=== PATIENT | female | born 1955 | race Caucasian/White ===

== ENCOUNTER 2016-08-29 09:34 | Emergency (ER) | payer OTHER ==
[2016-08-29 09:40] VITALS: BP 111/70; PULSE 77; TEMP 98.4; BMI 21.5
--- NOTE | 2016-08-29 10:32 | PDOC ---
History of Present Illness - General Chief Complaint: Laceration Stated Complaint: LEFT 4 FINGER LACERATION Time Seen by Provider: 08/29/16 09:35 - History of Present Illness Initial Comments: 08/29/16 10:44 Chief complaint: Finger injury History of present illness: Patient cut her left fourth finger while chopping salad at work. There is bleeding. She denies distal numbness tingling or limited range of motion. 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 Review of systems: As noted above, denies distal numbness tingling weakness or limited motion. Denies pain at present Past medical history: Healthy female, no current medical problems, no medications. Specifically, denies diabetes Social/family history reviewed and noncontributory Physical exam: Alert oriented well-developed well-nourished no acute distress cheerful and cooperative Afebrile, vital signs normal Left fourth finger: There is a flap-type laceration over the dorsal aspect of the middle phalanx. There is a small amount of bleeding. There is synovial thickening and a flexion deformity of the DIP joint, but no sign of active inflammation. She is unable to fully extend the DIP joint, but states that this is unchanged. There is no sensory deficit to the distal phalanx and capillary refill is intact Impression: Laceration of the finger, no new tendon or nerve involvement on examination Plan: Anesthetize, explored, and repair. Tetanus is up-to-date Past History - Past Medical History Allergies/Adverse Reactions: Allergies Allergy/AdvReac Type Severity Reaction Status Date / Time No Known Allergies Allergy Verified 08/29/16 09:35 Home Medications: Ambulatory Orders No Home Medications 0 dose .ROUTE UTDICT 01/18/12 Other medical history: PT DENIES - Surgical History Appendectomy: Yes - Immunization History Immunization Up to Date: Yes - Psycho/Social/Smoking Cessation Hx Anxiety: No Suicidal Ideation: No Smoking Status: No Smoking History: Never smoked Number of Cigarettes Smoked Daily: 0 Information on smoking cessation initiated: No Hx Alcohol Use: Yes (WINE OCCASIONAL) Drug/Substance Use Hx: No Substance Use Type: None *Physical Exam - Vital Signs Last Vital Signs Temp Pulse Resp BP Pulse Ox 98.4 F 77 18 111/70 98 08/29/16 09:35 08/29/16 09:35 08/29/16 09:35 08/29/16 09:35 08/29/16 09:35 Medical Decision Making - Medical Decision Making 08/29/16 10:48 Procedure note: Repair of laceration Digital block was performed with 1% Xylocaine plain, with good resultant anesthesia The flap was elevated and the laceration explored. It was superficial, confined to the skin and subcutaneous tissue, with intact extensor tendon visualized Wound was thoroughly scrubbed and irrigated with normal saline Hemostasis was obtained with pressure, and the wound edges were approximated with 5-0 nylon suture, loosely so as not to compromise the flap. The wound was dressed with bacitracin, 2 x 2, and tube gauze Wound instructions were given Recheck immediately if sign of infection, otherwise return 7-10 days for suture removal. Patient discharged fully ambulatory and in no pain or other distress to follow- up as directed *DC/Admit/Observation/Transfer Diagnosis at time of Disposition: Laceration of finger Qualifiers: Encounter type: initial encounter Qualified Code(s): S61.219A - Laceration without foreign body of unspecified finger without damage to nail, initial encounter - Discharge Dispostion Disposition: HOME Condition at time of disposition: Improved Admit: No - Referrals Referrals: Scott Castellanos MD [Staff Physician] - - Patient Instructions Printed Discharge Instructions: DI for Laceration Repair Additional Instructions: Keep absolutely clean and dry. Rest and elevate tonight. Recheck immediately if sign of infection Sutures out in 7-10 days. - Post Discharge Activity Work/School Note: Back to Work
== END 2016-08-29 10:54 | disposition home or self-care (01) ==
LOC: FER 09:34
PROC: 0HQGXZZ Repair Left Hand Skin, External Approach (ICD-10-PCS; principal; 2016-08-29)
DX: S61.215A Laceration without foreign body of left ring finger without damage to nail, initial encounter (principal); W26.0XXA Contact with knife, initial encounter; Y93.G1 Activity, food preparation and clean up; Y92.9 Unspecified place or not applicable; Y99.0 Civilian activity done for income or pay
CPT/HCPCS: 99282-25

== ENCOUNTER 2016-09-06 16:51 | Emergency (ER) | payer OTHER ==
[2016-09-06 17:10] VITALS: BP 102/55; PULSE 67; TEMP 98; BMI 22.4
--- NOTE | 2016-09-06 17:22 | PDOC ---
Suture Removal/Wound Check HPI - History of Present Illness Chief Complaint: Suture/Staple Removal (other) Stated Complaint: SUTURE REMOVAL Time Seen by Provider: 09/06/16 16:58 - Onset of Previous Treatment Comment:: 09/06/16 17:22 60-year-old female was seen in the emergency department on 08/29/16, for a laceration on the extensor surface of her left fourth finger, and the middle phalange, between the DIP and PIP joints There was a flap laceration, that was repaired with 4 5-0 nylon sutures She returns here today for suture removal She denies any redness, discharge, or problems with the area Past History - Past Medical History Allergies/Adverse Reactions: Allergies No Known Allergies Allergy (Verified 09/06/16 16:52) Home Medications: Ambulatory Orders NK [No Known Home Medication] 09/06/16 - Reproductive History LMP: 10/19/11 - Immunization History Immunizations Up to Date: Yes Tetanus Status: More than 5 years - Social History Smoking History: No Smoking Status: Never smoked Number of Ciarettes Per Day: 0 Alcohol Use: occasionally Drug Use: none Suture Removal/Wound Check PE - Physical Exam Comments: 09/06/16 17:24 Physical exam Patient is alert and ambulatory Left fourth finger-there is a healing flap laceration over the extensor aspect of the middle phalanx of the fourth finger, which is healing well, without evidence of infection Medical Decision Making - Medical Decision Making 09/06/16 17:24 The 4 sutures were removed without difficulty, and the wound remained closed and intact Steri-Strips and a bandage was applied, and will be left on for the next 48 hours Impression-encounter for suture removal *DC/Admit/Observation/Transfer Diagnosis at time of Disposition: Encounter for removal of sutures - Discharge Dispostion Condition at time of disposition: Stable - Patient Instructions Additional Instructions: Keep the area dry, and keep the Steri-Strips and bandage in place for the next 48 hours, then you may remove the bandage and the Steri-Strips will come off
== END 2016-09-06 17:32 | disposition home or self-care (01) ==
LOC: FER 16:51
DX: Z48.02 Encounter for removal of sutures (principal)
CPT/HCPCS: 99281-25